=== PATIENT | female | born 1950 | race Caucasian/White ===

== ENCOUNTER 2017-09-10 09:11 | Inpatient (IN) | payer OTHER, BC ==
[2017-07-22 15:38] VITALS: BMI 35.0
[2017-07-27 16:00] VITALS: BMI 38.0
--- NOTE | 2017-09-09 08:34 | HISTORY & PHYSICAL EXAMINATION ---
DATE OF ADMISSION: 09/10/2017 CHIEF COMPLAINT: Rotator cuff arthropathy of the right shoulder. HISTORY OF PRESENT ILLNESS: Emely is a pleasant 67-year-old female who has been dealing with chronic increasing right shoulder pain and weakness. X-rays and clinical examination had been diagnostic for rotator cuff arthropathy of the right shoulder. I had given her injections in the past, but unfortunately, injections are not helping anymore. She elected to proceed with a reverse right shoulder arthroplasty. PAST MEDICAL HISTORY: Significant for depression following loss of her daughter, hypertension, stage III cervical cancer and stage I uterine cancer, and osteoarthritis. PAST SURGICAL HISTORY: Significant for a hysterectomy and an L4-L5 fusion. ALLERGIES: None. MEDICATIONS: Include Aciphex, Effexor, Estrace, Plaquenil, sulindac, Lasix, metoprolol and Benicar. FAMILY HISTORY: Significant for lung cancer in her mother and bladder cancer in her father. SOCIAL HISTORY: She is and rarely drinks. She has 1 child. She is moderately active. REVIEW OF SYSTEMS: She complains of right shoulder pain. All other pertinent review of systems are negative. PHYSICAL EXAMINATION: GENERAL: She is awake, alert and oriented x3. She is in no apparent distress. She is very pleasant. HEENT: Pupils equal, round, reactive to light. Extraocular movements are intact. Oral mucosa is pink and moist. HEART: Regular rate per radial pulse. LUNGS: Sarah symmetrically bilaterally with no audible breath sounds. ABDOMEN: Soft, nontender, nondistended. MUSCULOSKELETAL: On physical examination of the right shoulder, she can actively forward elevate about 130 degrees and has 120 degrees of abduction. She has 4/5 muscle strength with full can testing and 5/5 muscle strength with external rotation. Negative bear hug and belly press test. Tenderness to palpation in the subacromial space and over the anterior glenohumeral joint line. IMAGING DATA: X-rays of the right shoulder do show signs of rotator cuff arthropathy. There is some arthritis of the humeral head. There is superior migration of the humeral head on the glenoid and articulation with the acromion. IMPRESSION: Rotator cuff arthropathy of the right shoulder. PLAN: Will proceed with a reverse right shoulder arthroplasty. Postoperatively, she will be placed in a sling and kept overnight in the hospital for postop medical management. We plan to discharge her to [facility].
[~2017-09-10] VITALS: Ht 154.9 cm; Wt 91.5 kg
[2017-09-10] VITALS (8 sets, daily range): BP systolic 94–115; BP diastolic 60–72; PULSE 63–90; TEMP 36.4–37; O2SAT 92–100; Ht 154.9 cm; Wt 91.5 kg
[2017-09-10] MEDS: TRANEXAMIC ACID INJ 1,000 MG x 2 Bags IV SCH ×4 (06:30→11:16)
[~2017-09-10 09:11] MED LIST: ACET1TAB84 PO; ACETAMINOPHEN 500 MG TAB PO SCH; CLN150 PO; EFF75 PO; ESTR2 PO; FAMOTIDINE 20 MG TAB PO SCH; FURO-85 PO; GABAPENTIN 300 MG CAP PO SCH; HYDR200T5 PO; LACTATED RINGER'S 1000ML 1,000 ML IV SCH; LACTATED RINGER'S 1000ML IV SCH; METO25TA4 PO; OLME40TA30 PO; RABE20TA5 PO; ROPIVACAINE 5MG/ML 30 ML 150 MG, BUPIVACAINE 0.5% MPF INJ 30 ML, EpINEphrine HCL INJ 0.... INFIL SCH
[2017-09-10] MEDS ORDERED: FENTANYL CITRATE INJ 50 MCG/1 ML 2 ML VIAL IV PRN (09:45)
[2017-09-10] MEDS ORDERED: ATROPINE SULFATE 0.1 MG/ML 5ML SYR IV PRN (09:45)
[2017-09-10] MEDS ORDERED: ONDANSETRON INJ 2 MG/ML 2 ML VIAL IV PRN ×2 (09:45→13:15)
[2017-09-10] MEDS ORDERED: EpHEDrine SULFATE INJ 50 MG/ML AMP IV PRN (09:45)
[2017-09-10] MEDS: CEFAZOLIN 2000MG IV PUSH 15 ML IV SCH ×2 (10:07→11:53)
--- NOTE | 2017-09-10 11:01 | History & Physical Bridge Note ---
H&P Re-Evaluation Bridge Note: I have examined the patient, reviewed the History & Physical and in the interval since the performance of the History & Physical I have noted the following changes of clinical significance: No changes noted
[2017-09-10] MEDS ORDERED: SCOPOLAMINE 1.5 MG TDSY TD ONE (11:17)
[2017-09-10] MEDS ORDERED: ORTHO JOINT ANESTHETIC ONE (11:39)
[2017-09-10] MEDS ORDERED: BACITRACIN 50000 UNIT VIAL ONE (11:39)
--- NOTE | 2017-09-10 13:12 | [facility] Post Operative Brief Note ---
Immediate Operative Summary Operative Date Sep 10, 2017. Pre-Operative Diagnosis Right Shoulder Arthropathy, Right Shoulder Post-Operative Diagnosis same as preop Procedure(s) Performed Right Reverse Total Shoulder Arthroplasty Surgeon Dr. Ruiz Matson Commercial Stripper Surgeon(s) Jac Negrete PA-C Estimated Blood Loss 250ML Findings Consistent with Post-Op Diagnosis Specimens Permanent Solution: A.) Right Humeral Head Anesthesia Type General [facility]
[2017-09-10] MEDS ORDERED: MoRPHine SULFATE 2 MG/ML CARP IV PRN (13:15)
[2017-09-10] MEDS ORDERED: NALOXONE HCL 0.4 MG/1 ML VIAL/CARP IV PRN (13:15)
[2017-09-10] MEDS ORDERED: BISACODYL 10 MG SUPP PR PRN (13:15)
[2017-09-10] MEDS ORDERED: METOCLOPRAMIDE HCL INJ 5 MG/ML 2 ML VIAL IV PRN (13:15)
[2017-09-10] MEDS ORDERED: SOD PHOSPHATE/SOD BIPHOSPHATE ENEMA 132 ML BTL PR PRN (13:15)
[2017-09-10] MEDS ORDERED: MAGNESIUM HYDROXIDE SUSP 30 ML UDC PO PRN (13:15)
--- NOTE | 2017-09-10 13:18 | Discharge Instructions ---
Discharge Instructions Date of Service Sep 10, 2017. Admission Reason for Admission: Right Cuff Arthropathy Discharge Discharge Diagnosis / Problem: Right Reverse Total Shoulder Discharge Goals Goal(s): Decrease discomfort, Improve function Activity Recommendations Activity Limitations: as noted below . Instructions / Follow-Up Instructions / Follow-Up Activity and Therapy Recommendations: * Wear your sling for 3 weeks, unless otherwise instructed. You may remove your sling to shower and to dress, but otherwise, you should be in your sling at all times, including while sleeping * The shoulder replacement is very stable and you can use your hand while in the sling * Physical Therapy should start about 3-5 days from your day of surgery. Therapy will last about 8-12 weeks * You were shown a series of exercises in the hospital. Do these exercises daily including the exercises you were shown in physical therapy. Medications: * Narcotic You will likely be sent home from the hospital with a prescription for the narcotic pain medication that worked best throughout your stay. * Other medications may be prescribed for specific circumstances. If you have any questions, please call the office at . * Resume previous home medications unless otherwise instructed Dressing Care: If the incision is not draining then you may leave the kathleen open to air. If there is a little bit of drainage or if the kathleen are getting stuck on your clothing then cover the incision with a dry dressing. The kathleen will be removed at your 2 week follow-up appointment. Showering: You may shower 5 days from the day of surgery. Let the soapy shower water run over the kathleen and pat them dry. Do not scrub or soak the incision. Things To Watch For: * Drainage from the incision site that occurs more than one week after your surgery. * Increased redness at the incision site. * Fever above 102 degrees Fahrenheit. * Unusual chest pain or shortness of breath. * Call [facility] at with any of the above problems Follow-Up Visit: Follow-up with Dr. Matson 2 weeks after your day of surgery. An appointment was probably scheduled when you signed-up for surgery in the office. If you have any questions call Office Instructions: More detailed instructions as well as Frequently Asked Questions were provided in a folder by our office when you signed-up for surgery. Please review these instructions when you get home. If you have any further questions or concerns, please feel free to call the office at [phone] Current Hospital Diet Patient's current hospital diet: Regular Diet Discharge Diet Recommended Diet: Regular Diet Procedures Procedures Performed: Right Reverse Total Shoulder Arthroplasty Pending Studies Studies pending at discharge: no Medical Emergencies . Who to Call and When: Medical Emergencies: If at any time you feel your situation is an emergency, please call 911 immediately. . Non-Emergent Contact Non-Emergency issues call your: Surgeon Call Non-Emergent contact if: wound has increased drainage, wound has increased redness . "Provider Documentation" section prepared by Ruiz Matson. .
--- NOTE | 2017-09-10 14:03 | DIAGNOSTIC IMAGING REPORT ---
R SHOULDER MIN 2 VIEWS ROUTINE CLINICAL HISTORY: Post shoulder surgery COMPARISON: None. DISCUSSION: There are postsurgical changes of a reverse total right shoulder arthroplasty. There are no acute fractures. There is no dislocation. There are overlying skin kathleen. There is air within soft tissues consistent with recent surgery. IMPRESSION: Postsurgical changes of a reverse total right shoulder arthroplasty Electronically signed by: Lobo Wylie M.D. 09/10/2017 2:02 PM Dictated Date/Time: 09/10/2017 2:01 PM
--- NOTE | 2017-09-10 14:07 | Anesthesiology Progress Note ---
Anesthesia Post Op Note Date & Time Sep 10, 2017 at 14:07 Vital Signs Pain Intensity: 0 Vital Signs Past 12 Hours Date Time Temp Pulse Resp B/P (MAP) Pulse Ox O2 Delivery O2 Flow Rate FiO2 09/10/17 14:03 36.3 76 20 114/67 (83) 98 Nasal Cannula 2 Oxymask 09/10/17 14:01 114/67 09/10/17 13:58 68 20 97 09/10/17 13:58 68 20 09/10/17 13:57 120/72 09/10/17 13:53 81 18 09/10/17 13:53 81 18 125/78 95 09/10/17 13:48 68 19 09/10/17 13:48 68 19 96 09/10/17 13:47 70 17 09/10/17 13:47 74 17 110/69 95 09/10/17 13:42 72 20 137/66 100 09/10/17 13:42 71 20 09/10/17 13:37 76 19 125/69 99 09/10/17 13:37 78 19 09/10/17 13:33 136/68 09/10/17 13:32 36.0 74 19 136/68 (92) 100 Oxymask 10 09/10/17 13:32 18 09/10/17 13:32 71 18 09/10/17 09:47 36.5 72 18 115/66 (82) 96 Room Air Notes Mental Status: alert / awake / arousable, participated in evaluation Pt Amnestic to Procedure: Yes Nausea / Vomiting: adequately controlled Pain: adequately controlled Airway Patency, RR, SpO2: stable & adequate BP & HR: stable & adequate Hydration State: stable & adequate Anesthetic Complications: no major complications apparent
[2017-09-10] MEDS: ACETAMINOPHEN IV 1,000 MG in EMPTY BAG 0 ML IV SCH ×2 (15:44→21:57)
--- NOTE | 2017-09-10 16:06 | OPERATIVE REPORT ---
DATE OF OPERATION: 09/10/2017 PREOPERATIVE DIAGNOSIS: Rotator cuff arthropathy of the right shoulder. POSTOPERATIVE DIAGNOSIS: Rotator cuff arthropathy of the right shoulder. PROCEDURE: Right reverse total shoulder arthroplasty. SURGEON: Ruiz Matson MD PRODUCTION GENERALIST: Tim Negrete PA-C, whose assistance was necessary for positioning of the arm and helping with instrumentation as well as retraction and closure. ANESTHESIA: General with a right interscalene nerve block. COMPLICATIONS: None. CONDITION: Stable to PACU. IMPLANTS USED: I used a [employer] comprehensive reverse right shoulder arthroplasty system with a 25 mm mini baseplate, a 35 mm central screw, 2 peripheral locking screws, a 36 mm standard eccentric glenosphere, a size-11 pressfit humeral stem with a standard humeral tray and bearing. INDICATIONS: Emely is a pleasant 67-year-old female who has been dealing with chronic right shoulder pain and weakness. X-rays and clinical examination have been diagnostic for rotator cuff arthropathy of the right shoulder. After failing extensive conservative treatment including multiple injections, she elected to proceed with a reverse right shoulder arthroplasty. OPERATION AND FINDINGS: On 09/10/2017, she arrived at [facility] for the above procedure. She was seen in the preoperative holding area and the operative extremity was identified and signed. She was given a preoperative antibiotic and a right interscalene nerve block. She was taken back to the operating room, laid on table in supine position and put under general anesthesia. She was then put into the beachchair position. The right shoulder was prepped and draped in sterile fashion. Time-out was done, and the patient's operative extremity was properly identified. A deltopectoral approach was used. Dissection was taken down through the fascia and the deltoid was retracted laterally and the conjoined tendon was retracted medially. The long head of the biceps tendon was tenodesed to the upper border of the pec major and the subscapularis was tenotomized off the lesser tuberosity. The proximal humerus was subluxated out of the wound. Sequential reaming down the humeral canal up to a size 11 reamer was done. Off that reamer, a proximal humeral resection guide was placed and the humerus was resected at 135 degrees of inclination and 25 degrees of retroversion. The head was removed and the glenoid was exposed. Time was spent doing a complete circumferential capsular and labral release. A [employer] signature guide was then snapped onto the anterior rim of the glenoid. A guide pin was placed in the reverse shoulder arthroplasty hole. A 25 mm mini baseplate was then reamed and the final baseplate was impacted into place. A 35 mm central screw was placed followed by superior and inferior locking screw. A 36 mm eccentric glenosphere was then impacted into place. The proximal humerus was then exposed. Sequential broaching up to a size 11 broach was done. Off that broach, a standard humeral tray was trialed, the shoulder was reduced, brought through a full range of motion and felt to be stable. The shoulder was then dislocated. The stem was removed. The final size-11 humeral stem was then impacted into place. A standard humeral bearing was snapped into the humeral tray and the ring lock mechanism was engaged. The humeral tray was then impacted onto the humeral stem. The shoulder was reduced, brought through a full range of motion and felt to be stable. Surrounding soft tissues were then injected with 100 mL of an orthopedic pain control cocktail. The subscapularis was then tenodesed back to the lesser tuberosity with transosseous FiberWire sutures. The joint was then irrigated with 3 liters normal saline solution with bacitracin. The axillary nerve was palpated. Hemostasis was obtained. The skin was then closed with 2-0 Vicryl, 3-0 V-Loc suture and kathleen. She was then placed in a soft compressive dressing and a regular arm sling. She was then extubated, transferred to a hospital bed and taken to postanesthesia care unit in stable condition. She tolerated the procedure well. I attest to the content of the Intraoperative Record and any orders documented therein. Any exception s are noted below.
[2017-09-10] MEDS: POTASSIUM CHLORIDE INJ 10 MEQ in SODIUM CHLORIDE 0.9% 1000ML 1,000 ML IV SCH (16:29)
[2017-09-10] MEDS ORDERED: COUGH DROP (SUGAR FREE) LOZ 24 LOZ/1 BOX LOZ ONE (16:37)
[2017-09-10] MEDS ORDERED: NURSING DECISION MEDICATION ORDER SCH (16:45)
[2017-09-10] MEDS ORDERED: COUGH DROP (SUGAR FREE) LOZ 24 LOZ/1 BOX LOZ PRN (17:00)
[2017-09-10] MEDS: KETOROLAC TROMETHAMINE 15 MG/ML VIAL IV. SCH ×2 (17:32→23:30)
[2017-09-10] MEDS ORDERED: FUROSEMIDE 20 MG TAB PO SCH (17:45)
[2017-09-10] MEDS: CEFAZOLIN IV 2,000 MG in SYRINGE 0 ML IV SCH (20:09)
[2017-09-10] MEDS ORDERED: SENNA 8.6 MG TAB PO SCH (21:00)
[2017-09-10] MEDS: METOPROLOL SUCC 25MG EXT REL TAB PO SCH (21:15)
[2017-09-10] MEDS: DOCUSATE SODIUM 100 MG CAP PO SCH (21:15)
[2017-09-10] MEDS: HYDROXYCHLOROQUINE SULFATE 200 MG TAB PO SCH (21:15)
[2017-09-11] MEDS: POTASSIUM CHLORIDE INJ 10 MEQ in SODIUM CHLORIDE 0.9% 1000ML 1,000 ML IV SCH (02:00)
[2017-09-11 02:56] VITALS: BP 103/64; PULSE 93; TEMP 36.7; O2SAT 95
[2017-09-11] MEDS: KETOROLAC TROMETHAMINE 15 MG/ML VIAL IV. SCH (05:20)
[2017-09-11] MEDS: CEFAZOLIN IV 2,000 MG in SYRINGE 0 ML IV SCH (05:21)
[2017-09-11] MEDS: ACETAMINOPHEN IV 1,000 MG in EMPTY BAG 0 ML IV SCH (05:22)
[2017-09-11] MEDS: OXYCODONE HCL IR 5 MG TAB (IMMEDIATE RELEASE) PO PRN ×3 (05:29→11:38)
[2017-09-11 06:35] LABS: HEMATOCRIT 28.7 % (37-47); HEMOGLOBIN 9.6 g/dL (12.0-16.0); MEAN CELL VOLUME 89.7 fL (80-100); MEAN CORPUSCULAR HGB CONC 33.4 g/dl (32-36); MEAN PLATELET VOLUME 10.3 fL (7.4-10.4); PLATELET COUNT 208 K/uL (130-400); RED CELL DISTRIBUTION WIDTH CV 12.5 % (11.5-14.5); RED CELL DISTRIBUTION WIDTH SD 40.7 fL (36.4-46.3); WHITE BLOOD COUNT 13.39 K/uL (4.8-10.8)
[2017-09-11 07:09] LABS: CALCIUM 7.5 mg/dl (8.5-10.1); CREATININE 1.05 mg/dl (0.60-1.20); POTASSIUM 3.7 mmol/L (3.5-5.1)
[2017-09-11 07:25] VITALS: BP 125/77; PULSE 98; TEMP 36.6; O2SAT 96
[2017-09-11] MEDS ORDERED: RXC5 PO (08:12)
[2017-09-11] MEDS ORDERED: MULTIVITAMIN TAB PO SCH (09:00)
[2017-09-11] MEDS ORDERED: VENLAFAXINE HCL XR 75 MG CAPXR PO SCH (09:00)
[2017-09-11] MEDS ORDERED: PANTOprazole SOD 40 MG TAB PO SCH (09:00)
[2017-09-11] MEDS ORDERED: ESTRADIOL 1 MG TAB PO SCH (09:00)
[2017-09-11] MEDS ORDERED: OLMESARTAN MEDOXOMIL 40 MG TAB PO SCH (09:00)
--- NOTE | 2017-09-11 09:48 | ORTHOPEDICS PROGRESS NOTE ---
CHIEF COMPLAINT: Status post reverse right shoulder arthroplasty, postop day #1. PROGRESS: Emely was seen and examined at bedside today. Overall, she is doing fairly well. The numbness is just starting to wear off in her arm and she is getting a little bit sore. She was able to get some sleep last night. Overall, she is happy with her progress and has no complaints. PHYSICAL EXAMINATION: Right shoulder: The dressing is clean and dry and she is wearing her sling as instructed. Her radial, median and ulnar nerves are checked and intact at her wrist. Her axillary nerve was not definitively checked yet. LABORATORY DATA: She has an H and H today of 9.6 and 28.7. Her glucose is 120. Her vital signs are all stable on room air and she is voiding on her own. X-rays postoperatively of the right shoulder show the prosthesis to be in anatomic alignment without any evidence of fracture, dislocation or loosening. IMPRESSION: Status post reverse right shoulder arthroplasty, postop day #1. PLAN: At this point, she is doing very well and happy with her progress. She will be participating with physical therapy this morning doing hand, wrist, elbow and pendulum exercises. Her pain is relatively well controlled and we will discharge her to home later this morning with [facility].
[2017-09-11] MEDS: METOPROLOL SUCC 25MG EXT REL TAB PO SCH (09:56)
[2017-09-11] MEDS: DOCUSATE SODIUM 100 MG CAP PO SCH (09:58)
[2017-09-11] MEDS: HYDROXYCHLOROQUINE SULFATE 200 MG TAB PO SCH (09:59)
[2017-09-11 11:32] VITALS: BP 109/74; PULSE 86; TEMP 37; O2SAT 95
--- NOTE | 2017-09-13 08:01 | DISCHARGE SUMMARY ---
DISCHARGE DIAGNOSIS: Rotator cuff arthropathy of the right shoulder. PROCEDURE: Right reverse total shoulder arthroplasty on 09/10/[address] Ruiz Matson. DISCHARGE INSTRUCTIONS: 1. Oxycodone 5-10 mg every 4 hours as needed for pain. 2. Tylenol as needed for pain. 3. Estrace 2 mg daily. 4. Lasix 20 mg daily. 5. Plaquenil 200 mg twice a day. 6. Toprol-XL 25 mg twice a day. 7. Benicar 40/12.5 mg daily. 8. Aciphex 20 mg daily. 9. Sulindac 150 mg twice a day. 10. Effexor 75 mg daily. 11. Right arm sling for 3 weeks. 12. Follow up with Dr. Matson in 2 weeks. 13. Call the office of Dr. Matson with any questions or concerns. HOSPITAL COURSE: Emely is a pleasant 67-year-old female who presented to my office with chronic increasing right shoulder pain and weakness. X-rays and clinical examination were diagnostic for rotator cuff arthropathy of the right shoulder. After failing conservative treatment, she elected to undergo a right reverse shoulder arthroplasty. On 09/10/2017, she arrived at [facility] and underwent a reverse right shoulder arthroplasty without complication. She had a general anesthetic and a right interscalene nerve block. Postoperatively, she was placed in an arm sling and discharged to general orthopedic floor. Her hospital course was uneventful. On postop day #1, her H and H was stable at 9.6 and 28.7. She was able to participate well with physical therapy, doing hand, wrist, elbow and pendulum exercises. Pain was controlled with the oxycodone. She was subsequently discharged to home with [facility] and the above instructions.
== END 2017-09-11 12:00 | disposition home or self-care (01) | DRG 483 ==
LOC: C.ACU 09:11 → C.3E 09:30 → EDBEDREQ 13:52 → ENRESERV 13:55
PROVIDERS: ADMIT Orthopaedic Surgery; ATTEND Orthopaedic Surgery
PROC: 0RRJ00Z Replacement of Right Shoulder Joint with Reverse Ball and Socket Synthetic Substitute, Open Approach (ICD-10-PCS; principal; 2017-09-10 12:00)
DX: M19.011 Primary osteoarthritis, right shoulder (principal); I10 Essential (primary) hypertension; F32.9 Major depressive disorder, single episode, unspecified; Z79.899 Other long term (current) drug therapy